=== PATIENT | male | born 1950 | race Caucasian/White ===

== ENCOUNTER → 2017-03-04 | Outpatient (CLI) | payer OTHER ==
[2017-03-04 12:22] LABS: BASO % 0.5 % (0.0-1.0); EOS % 0.2 % (0.0-3.0); IMMATURE GRANULOCYTE % 0.5 % (0-0); LYMPH # 0.7 10^3/uL (1.5-4.5); MEAN CORPUSCULAR HEMOGLOBIN 32.8 pg (27.0-33.0); MEAN CORPUSCULAR HGB CONC 35.1 g/dl (32.0-36.5); MEAN CORPUSCULAR VOLUME 93.4 fl (80.0-96.0); MONO # 0.7 10^3/uL (0.0-0.8); MONO % 7.9 % (0.0-5.0); NEUTROPHILS # 7.2 10^3/uL (1.8-7.7); NEUTROPHILS % 82.9 % (36.0-66.0); PLATELET COUNT, AUTOMATED 169 10^3/uL (150-450); RED CELL DISTRIBUTION WIDTH 12.5 % (11.5-14.5); WHITE BLOOD COUNT 8.7 10^3/uL (4.0-10.0)
[2017-03-04 12:37] LABS: ALBUMIN 3.8 GM/DL (3.2-5.2); ALBUMIN/GLOBULIN RATIO 1.19 (1.00-1.93); ALKALINE PHOSPHATASE 58 U/L (45-117); ALT/SGPT 39 U/L (12-78); ANION GAP 9 MEQ/L (8-16); AST/SGOT 20 U/L (15-37); BILIRUBIN,TOTAL 1.1 MG/DL (0.2-1.0); BLOOD UREA NITROGEN 11 MG/DL (7-18); CALCIUM LEVEL 9.1 MG/DL (8.8-10.2); CARBON DIOXIDE LEVEL 28 MEQ/L (21-32); CHLORIDE LEVEL 100 MEQ/L (98-107); CREATININE FOR GFR 1.08 MG/DL (0.70-1.30); GLOMERULAR FILTRATION RATE > 60.0 (>49); GLUCOSE, FASTING 160 MG/DL (80-110); POTASSIUM SERUM 3.2 MEQ/L (3.5-5.1); SODIUM LEVEL 137 MEQ/L (136-145)
== END ==
LOC: M LAB 11:56
PROVIDERS: ATTEND Physician Assistant
DX: R19.7 Diarrhea, unspecified (principal)

== ENCOUNTER 2017-11-01 09:17 | Day surgery (SDC) | payer OTHER ==
[~2017-11-01 09:17] MED LIST: LIDOCAINE 1% MDV 20ML VIAL As Ordered; PROPOFOL 200 MG/20 ML VIAL As Ordered
[2017-11-01] MEDS: NS 1,000 ML IV (09:46)
== END 2017-11-01 10:46 | disposition home or self-care (01) ==
LOC: M OPP 09:17
DX: K22.70 Barrett's esophagus without dysplasia (principal); R12 Heartburn; R11.0 Nausea; K22.8 Other specified diseases of esophagus; K44.9 Diaphragmatic hernia without obstruction or gangrene; K31.89 Other diseases of stomach and duodenum; I10 Essential (primary) hypertension; E78.5 Hyperlipidemia, unspecified; K21.9 Gastro-esophageal reflux disease without esophagitis; M19.90 Unspecified osteoarthritis, unspecified site; F41.9 Anxiety disorder, unspecified; G47.30 Sleep apnea, unspecified; I38 Endocarditis, valve unspecified; Z88.8 Allergy status to other drugs, medicaments and biological substances; Z79.82 Long term (current) use of aspirin; Z79.899 Other long term (current) drug therapy; Z87.891 Personal history of nicotine dependence
CPT/HCPCS: 43239

== ENCOUNTER 2019-03-23 22:27 | Emergency (ER) | payer MEDICARE, OTHER ==
[~2019-03-23] VITALS: Ht 185.4 cm; Wt 100.0 kg
[~2019-03-23 22:27] MED LIST changes: +ASPI81TA26 PO; +ATOR1TAB21 PO; +DULO1CAP6 PO; -LIDOCAINE 1% MDV 20ML VIAL As Ordered; +OMEP40CA97 PO; -PROPOFOL 200 MG/20 ML VIAL As Ordered; +VALS1TAB49 PO
[2019-03-23] MEDS ORDERED: LOSA50TA88 PO (22:34)
[2019-03-23 22:55] LABS: BASO # 0.1 10^3/uL (0.0-0.2); BASO % 0.9 % (0.0-1.0); EOS # 0.3 10^3/uL (0.0-0.5); EOS % 3.9 % (0.0-3.0); HEMOGLOBIN 11.8 g/dl (13.5-17.5); LYMPH # 1.3 10^3/uL (1.5-5.0); LYMPH % 15.6 % (24.0-44.0); MEAN CORPUSCULAR HEMOGLOBIN 32.1 pg (27.0-33.0); MEAN CORPUSCULAR HGB CONC 32.8 g/dl (32.0-36.5); MEAN CORPUSCULAR VOLUME 97.8 fl (80.0-96.0); MONO % 12.5 % (0.0-5.0); NEUTROPHILS # 5.5 10^3/uL (1.5-8.5); NEUTROPHILS % 66.6 % (36.0-66.0); PLATELET COUNT, AUTOMATED 206 10^3/uL (150-450); RED BLOOD COUNT 3.68 10^6/uL (4.30-6.10); WHITE BLOOD COUNT 8.2 10^3/uL (4.0-10.0)
[2019-03-23 23:24] LABS: ALBUMIN 3.8 GM/DL (3.2-5.2); ALT/SGPT 69 U/L (12-78); BILIRUBIN,DIRECT 0.1 MG/DL (0.0-0.2); BILIRUBIN,TOTAL 0.6 MG/DL (0.2-1.0); BLOOD UREA NITROGEN 20 MG/DL (7-18); CALCIUM LEVEL 8.9 MG/DL (8.8-10.2); CARBON DIOXIDE LEVEL 24 MEQ/L (21-32); CHLORIDE LEVEL 108 MEQ/L (98-107); CREATININE FOR GFR 1.03 MG/DL (0.70-1.30); GLOMERULAR FILTRATION RATE > 60.0 (>49); GLUCOSE, FASTING 99 MG/DL (70-100); LIPASE 121 U/L (73-393); POTASSIUM SERUM 3.8 MEQ/L (3.5-5.1); SODIUM LEVEL 141 MEQ/L (136-145); TOTAL PROTEIN 7.3 GM/DL (6.4-8.2)
[2019-03-23] MEDS ORDERED: ISOVUE-370 76% 100ML VIAL (Q9967) As Ordered ONE (23:28)
--- NOTE | 2019-03-24 00:02 | REPVR ---
PROCEDURE INFORMATION: Exam: CT Abdomen And Pelvis With Contrast Exam date and time: 03/23/2019 11:35 PM Clinical history: 68 years old, male; Abdominal pain; Flank; Right lower quadrant (rlq); Additional info: Rlq abd pain TECHNIQUE: Imaging protocol: Computed tomography of the abdomen and pelvis with intravenous contrast. Radiation optimization: All CT scans at this facility use at least one of these dose optimization techniques: automated exposure control; mA and/or kV adjustment per patient size (includes targeted exams where dose is matched to clinical indication); or iterative reconstruction. Contrast material: ISOVUE 370; Contrast volume: 100 ml; Contrast route: IV; COMPARISON: No relevant prior studies available. FINDINGS: Lungs: No suspicious mass or airspace process in the visualized lung bases. Liver: Liver appears unremarkable aside from a left lobe 10 mm cyst. Gallbladder and bile ducts: Gallbladder is distended with fluid and contains intraluminal stones. Gallbladder wall appears edematous. No common bile duct or intrahepatic bile duct dilatation. Pancreas: Pancreas appears normal. No focal mass or peripancreatic inflammation. Spleen: Spleen appears homogeneous without focal mass. Adrenals: Adrenal glands are normal in appearance. Kidneys and ureters: Kidneys are unremarkable aside from a nearly 5 cm simple fluid density right renal cyst. Stomach and bowel: No evidence of small bowel obstruction. No evidence of acute diverticulitis. Appendix: Normal caliber appendix is identified, with no adjacent inflammation. Intraperitoneal space: No pneumoperitoneum. Vasculature: No aortic aneurysm. Main portal and splenic veins enhance normally. Lymph nodes: No enlarged lymph nodes. Bladder: Urinary bladder appears normal. Reproductive: Dystrophic prostate calcifications are noted. Bones/joints: Bony structures are normal except for lumbar spine degenerative disc changes. Soft tissues: Fat containing umbilical hernia is present. IMPRESSION: 1. Cholelithiasis, and thickened appearing gallbladder wall, suggesting acute cholecystitis. Consider sonography or HIDA scan to confirm. 2. Normal-appearing appendix Electronically signed by: Rosales Mendoza On 03/24/2019 00:01:38 AM
[2019-03-24 01:19] VITALS: BP 126/58
== END 2019-03-24 01:21 | disposition home or self-care (01) ==
LOC: M ED 22:27
DX: K80.50 Calculus of bile duct without cholangitis or cholecystitis without obstruction (principal); K81.9 Cholecystitis, unspecified; E78.5 Hyperlipidemia, unspecified; F41.1 Generalized anxiety disorder; I10 Essential (primary) hypertension; Z79.82 Long term (current) use of aspirin; Z79.899 Other long term (current) drug therapy; Z88.8 Allergy status to other drugs, medicaments and biological substances
CPT/HCPCS: 74177; 80048; 80076; 81001; 83690; 85025; 99284; Q9967

== ENCOUNTER 2019-06-18 06:07 | Day surgery (SDC) | payer MEDICARE ==
[~2019-06-18] VITALS: Ht 188 cm; Wt 94.3 kg
[~2019-06-18 06:07] MED LIST changes: +CYMB1CAP5 PO; +FISH1000 PO; +GLUC1CAP10 PO; +KS I200C PO; +LOSA50TA88 PO; +LR 1,000 ML IV SCH; +MULTCAP PO; -VALS1TAB49 PO; +VALS40TA9 PO
[2019-06-18] MEDS ORDERED: BUPIVACAINE/EPIN 0.25% 30 ML VIAL As Ordered ONE (07:10)
[2019-06-18] MEDS ORDERED: MIDAZOLAM INJ 2 MG/2 ML VIAL (J2250) As Ordered ONE (07:10)
[2019-06-18] MEDS ORDERED: ROCURONIUM BROMIDE 50 MG/5 ML VIAL As Ordered ONE ×2 (07:10→08:02)
[2019-06-18] MEDS ORDERED: BUPIVACAINE HCL 0.25% 10 ML VIAL As Ordered ONE (07:10)
[2019-06-18] MEDS ORDERED: LIDOCAINE 2% INJ 100 MG/5 ML SDV (FOR ANES.) As Ordered ONE (07:10)
[2019-06-18] MEDS ORDERED: propofoL 200 MG/20 ML VIAL As Ordered ONE (07:10)
[2019-06-18] MEDS ORDERED: fentaNYL 250 MCG/5 ML INJECTION (J3010) As Ordered ONE (07:10)
[2019-06-18] MEDS ORDERED: KETOROLAC 60 MG/2 ML VIAL (J1885) As Ordered ONE (07:10)
[2019-06-18] MEDS ORDERED: BUPIVACAINE LIPOSOME/PF 1.3% 20ML VIAL (13.3MG/ML)(EXPAREL)(C9290 PER1MG) As Ordered ONE (07:10)
[2019-06-18] MEDS ORDERED: dexameTHASONE 4 MG/ML 1ML VIAL (J1100) As Ordered ONE (07:10)
[2019-06-18] MEDS ORDERED: ONDANSETRON 4MG/2ML VIAL (J2405) As Ordered ONE (07:10)
[2019-06-18] MEDS ORDERED: ACETAMINOPHEN 1000MG 100ML IV BTL (OFIRMEV) (J0131 PER 10MG) As Ordered ONE (07:11)
[2019-06-18] MEDS ORDERED: ceFAZolin 1GM INJ (J0690 PER 500MG) As Ordered ONE (07:21)
[2019-06-18] MEDS ORDERED: ceFAZolin SOD 1 GM in D5W MINI-BAG PLUS 50 ML IV ONE (07:30)
[2019-06-18] MEDS ORDERED: SUGAMMADEX SODIUM 500 MG/5 ML VIAL (BRIDION) As Ordered ONE (08:00)
[2019-06-18] MEDS ORDERED: ePHEDrine SULFATE 25 MG/5 ML(5MG/ML) SYRINGE As Ordered ONE (08:01)
--- NOTE | 2019-06-18 09:40 | RO ---
DATE OF PROCEDURE: 06/18/2019 PREOPERATIVE DIAGNOSES: History of cholecystitis and symptomatic umbilical hernia. POSTOPERATIVE DIAGNOSES: History of cholecystitis and symptomatic umbilical hernia. PROCEDURE: 1. Laparoscopic cholecystectomy. 2, Open umbilical hernia. SURGEON: Dr. Nikolay Farley. PET TRAINER: ANESTHESIA: General endotracheal anesthesia. ESTIMATED BLOOD LOSS: 50 mL FLUIDS: Crystalloid. DESCRIPTION OF PROCEDURE: The patient was brought to the operating room and was given general anesthesia. After adequate anesthesia and preoperative antibiotics were given, the patient was prepped and draped in sterile fashion. Next a supraumbilical curvilinear incision was made with skin knife. Blunt dissection was carried down to fascia and the hernia sac itself and the hernia sac was transected at the level of the umbilicus getting into the peritoneum. The 12 mm trocar was placed in the site. The abdomen was insufflated to 15 mm of pressure and epigastric and two lateral trocars were placed. The gallbladder was seen. It was tensely distended and because of it being tensely distended, I was not able to grasp it and retract it. Thus an aspirate needle was used to aspirate the gallbladder itself. The gallbladder was then grasped, retracted superiorly. Then the neck of the gallbladder was cleared of peritoneum, which was quite thickened and multiple adhesions of the right upper quadrant was taken down with the electrocautery as well. Eventually, after all these adhesions were taken down off the abdominal wall as well as on the liver, the gallbladder was able to be retracted superiorly enough and I could see the neck of the gallbladder and this was cleared of peritoneum using the hook cautery both laterally and anteriorly. Eventually, after cleaning this anteriorly, I was able to see the cystic artery going up onto the gallbladder itself. I followed it onto the gallbladder for some distance and then clipped it proximally and distally and transected it. There was a second branch that was going posteriorly that was going towards the neck of the gallbladder. This was isolated further on in the case and I was able to circumferentially clear this. Then once I was able to go posterior to the neck of the gallbladder, a critical view of safety was obtained and I was able to clip the artery a little bit more proximally and then the oozing from this area was well controlled. Next the posterior aspect of the neck of the gallbladder was cleared even further to dissect what was somewhat a fluted neck of the gallbladder going down to the cystic duct. But eventually I was able to get this down to an adequate size where the clips would fit across this nicely and the stone staying away from the common bile duct area. Once this was clipped proximally and distally, the gallbladder then was taken from the gallbladder bed using electrocautery. 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 It was difficult to get in an adequate plane without some oozing. This was controlled with electrocautery and in some areas, I entered the gallbladder as well, trying to stay on the gallbladder instead of an area that seemed to be fused with the gallbladder wall and the liver. Once this was eventually taken up to the superior aspect of this, and taking off the wall of the gallbladder, the liver bed was entered a little bit and there was some oozing from this site which was controlled with electrocautery. This area was copiously irrigated. There still was a little bit of oozing from that liver bed area up at the edge and thus further cautery seem to provide good hemostasis but because of the oozing that was appreciated in the liver bed that was seen in this area I used some Johnson after irrigating out the right upper quadrant until clear. This Johnson was nice clean and dry. Was till white with no evidence of bleeding. No evidence of bile leak appreciated. The gallbladder was placed in and EndoCatch bag brought out through the umbilicus and the trocars were removed under direct visualization. 0 Ethibond was used to close the local hernia with two [id number] sutures. This came together relatively nicely. Once this came together #3-0 Vicryl was used to tack the umbilicus down to the fascia, #3-0 Vicryl was used to approximate dermis, #4-0 Vicryl was used to approximate skin, #4-0 Vicryl was used in the other trocar sites as well. Steri-Strips and dry sterile dressing was applied. The patient was awakened, extubated, brought to recovery room awake, alert and hemodynamically stable. Sponge and needle counts correct times two. edited: 06/19/2019 1030 tkf
[2019-06-18] MEDS: PERCOCET 5MG/325MG TAB PO PRN ×2 (09:44→11:05)
[2019-06-18] MEDS ORDERED: ONDANSETRON 4MG/2ML VIAL (J2405) IV PRN (09:45)
[2019-06-18] MEDS ORDERED: NORCO, ANEXSIA 5/325MG TABLET (HYDROcodone/ACETAMINOPHEN) PO PRN (09:45)
[2019-06-18] MEDS ORDERED: LR 1,000 ML IV SCH ×2 (09:45)
[2019-06-18] MEDS ORDERED: fentaNYL 100 MCG/2 ML INJECTION (J3010) IV PRN (09:45)
[2019-06-18] MEDS ORDERED: METOCLOPRAMIDE INJ 10MG/2ML VIAL (J2765) IV PRN (09:45)
[2019-06-18] MEDS ORDERED: PERCOCET 5MG/325MG TAB As Ordered ONE (11:03)
[2019-06-18 11:20] VITALS: BP 143/68
[2019-06-18] MEDS ORDERED: KETOROLAC 30 MG/ML VIAL (J1885) IV SCH (15:00)
== END 2019-06-18 11:55 | disposition home or self-care (01) ==
LOC: M SDC 06:07
PROVIDERS: ATTEND Surgery
DX: K80.10 Calculus of gallbladder with chronic cholecystitis without obstruction (principal); K42.9 Umbilical hernia without obstruction or gangrene; I10 Essential (primary) hypertension; E78.5 Hyperlipidemia, unspecified; K21.9 Gastro-esophageal reflux disease without esophagitis; G47.30 Sleep apnea, unspecified; Z87.891 Personal history of nicotine dependence; Z79.82 Long term (current) use of aspirin; Z79.899 Other long term (current) drug therapy
CPT/HCPCS: 47562; 49585; 88302; 88304; C9290; J0131; J0690; J1100; J1885; J2250; J2405; J3010

== ENCOUNTER → 2019-11-01 | Outpatient (CLI) | payer MEDICARE ==
[~2019-11-01] MED LIST changes: +IBUP200C88 PO; -KS I200C PO; -LR 1,000 ML IV SCH
--- NOTE | 2019-11-01 15:53 | REP ---
REASON FOR EXAM: Pain. I have been given no history of trauma. There are no priors for comparison. COMPARISON: No priors. FINDINGS: No acute fracture or destructive osseous lesion. The mortise is intact. Electronically Signed by Tray Colindres DO 11/01/2019 05:12 P
== END ==
LOC: M ADAMS 14:36
PROVIDERS: ATTEND Physician Assistant
DX: M25.572 Pain in left ankle and joints of left foot (principal)

== ENCOUNTER → 2020-12-30 | Outpatient (CLI) | payer MEDICARE ==
[~2020-12-30] MED LIST changes: +HYDR12.55 PO; +OMEP40CA4 PO; -OMEP40CA97 PO
== END ==
LOC: M LABSMTC 10:15
PROVIDERS: ATTEND Anesthesiology
DX: Z01.818 Encounter for other preprocedural examination (principal); Z20.822 Contact with and (suspected) exposure to COVID-19

== ENCOUNTER 2021-01-04 09:22 | Day surgery (SDC) | payer MEDICARE ==
[~2021-01-04] VITALS: Ht 188 cm; Wt 98.4 kg
[~2021-01-04 09:22] MED LIST changes: +NS 1,000 ML IV ONE
[2021-01-04] MEDS ORDERED: LIDOCAINE 2% 100MG/5ML SDV (FOR ANES.) As Ordered ONE (09:43)
[2021-01-04] MEDS ORDERED: fentaNYL 100 MCG/2 ML INJECTION (J3010) As Ordered ONE (09:43)
[2021-01-04] MEDS ORDERED: propofoL 200 MG/20 ML VIAL As Ordered ONE ×2 (09:43→09:58)
--- NOTE | 2021-01-04 10:03 | ROOR ---
Patient Name: Daron Rivera Procedure Date: 01/04/2021 9:49 AM Date of : 1950 Age: 70 Room: [facility] Gender: Male Note Status: Finalized Procedure: Upper Endoscopy + Biopsies Indications: Heartburn, Exclusion of Merritt's esophagus Providers: Stalin Uribe MD Referring MD: Chalino Barrios DO Requesting Provider: Medicines: Monitored Anesthesia Care Complications: No immediate complications. Procedure: Pre-Anesthesia Assessment: - The heart rate, respiratory rate, oxygen saturations, blood pressure, adequacy of pulmonary ventilation, and response to care were monitored throughout the procedure. The Endoscope was introduced through the mouth, and advanced to the second part of duodenum. The upper GI endoscopy was accomplished without difficulty. The patient tolerated the procedure well. Findings: The Z-line was irregular and was found 40 cm from the incisors. Multiple biopsies were obtained with cold forceps for evaluation to rule out Merritt's Esophagus randomly at the gastroesophageal junction. A small hiatal hernia was present. No other significant abnormalities were identified in a careful examination of the stomach. The exam of the duodenum was otherwise normal. Impression: - Z-line irregular, 40 cm from the incisors. - Small hiatal hernia. - Multiple biopsies were obtained at the gastroesophageal junction. - The examination was otherwise normal. Recommendation: - Patient has a contact number available for emergencies. The signs and symptoms of potential delayed complications were discussed with the patient. Return to normal activities tomorrow. Written discharge instructions were provided to the patient. - High fiber diet. - Discharge patient to home. - Follow an antireflux regimen. - Continue present medications. - Await pathology results. - Telephone GI clinic for pathology results in 1 week. - Repeat upper endoscopy for surveillance based on pathology results. - Return to referring physician. - The findings and recommendations were discussed with the patient's family. Procedure Code(s): --- Professional --- 15123, Esophagogastroduodenoscopy, flexible, transoral; with biopsy, single or multiple Diagnosis Code(s): --- Professional --- K22.8, Other specified diseases of esophagus K44.9, Diaphragmatic hernia without obstruction or gangrene R12, Heartburn CPT copyright 2019 [employer]. All rights reserved. The codes documented in this report are preliminary and upon hospitality host review may be revised to meet current compliance requirements. Stalin Uribe MD Stalin Uribe MD 01/04/2021 10:03:30 AM Electronically signed by Stalin Uribe MD Number of Addenda: 0 Note Initiated On: 01/04/2021 9:49 AM Estimated Blood Loss: Estimated blood loss: none.
[2021-01-04 10:26] VITALS: BP 157/78
== END 2021-01-04 10:27 | disposition home or self-care (01) ==
LOC: M OPP 09:22
PROVIDERS: ATTEND Internal Medicine Gastroenterology
DX: K22.70 Barrett's esophagus without dysplasia (principal); K22.8 Other specified diseases of esophagus; K44.9 Diaphragmatic hernia without obstruction or gangrene; R12 Heartburn; Z79.82 Long term (current) use of aspirin; Z79.899 Other long term (current) drug therapy; Z88.8 Allergy status to other drugs, medicaments and biological substances; Z87.891 Personal history of nicotine dependence
CPT/HCPCS: 43239; 88305; J3010

== ENCOUNTER 2024-03-06 06:54 | Day surgery (SDC) | payer MEDICARE ==
[~2024-03-06] VITALS: Ht 188 cm; Wt 99.7 kg
[~2024-03-06 06:54] MED LIST changes: +DULO1CAP5 PO; +EQL50TAB2 PO; +LOSA50TA28 PO; -LOSA50TA88 PO; +MULTTAB61 PO; -NS 1,000 ML IV ONE; +NS 250 ML IV ONE; +OMEG10002 PO
[2024-03-06] MEDS ORDERED: LIDOCAINE 2% 100MG/5ML SDV (FOR ANES.) As Ordered ONE (07:14)
[2024-03-06] MEDS ORDERED: propofoL 200 MG/20 ML VIAL As Ordered ONE (07:14)
[2024-03-06] MEDS ORDERED: fentaNYL 100 MCG/2 ML INJECTION As Ordered ONE (07:14)
[2024-03-06] MEDS ORDERED: GLYCOPYRROLATE INJ 0.2 MG/ML 2 ML VIAL As Ordered ONE (07:14)
[2024-03-06 08:28] VITALS: BP 144/65; TEMP 97.6; O2SAT 95
== END 2024-03-06 08:35 | disposition home or self-care (01) ==
LOC: M OPP 06:54
PROVIDERS: ATTEND Internal Medicine Gastroenterology
DX: Z12.11 Encounter for screening for malignant neoplasm of colon (principal); Z12.12 Encounter for screening for malignant neoplasm of rectum; D12.2 Benign neoplasm of ascending colon; K21.00 Gastro-esophageal reflux disease with esophagitis, without bleeding; K64.0 First degree hemorrhoids; K44.9 Diaphragmatic hernia without obstruction or gangrene; R19.7 Diarrhea, unspecified; K57.30 Diverticulosis of large intestine without perforation or abscess without bleeding; Z87.19 Personal history of other diseases of the digestive system; Z79.82 Long term (current) use of aspirin; Z79.899 Other long term (current) drug therapy; G47.30 Sleep apnea, unspecified; I10 Essential (primary) hypertension; E78.00 Pure hypercholesterolemia, unspecified; Z88.8 Allergy status to other drugs, medicaments and biological substances
CPT/HCPCS: 43239; 45380; 45385; 88305; J1596; J3010

== ENCOUNTER → 2025-05-06 | Outpatient (CLI) | payer MEDICARE ==
[~2025-05-06] MED LIST changes: -EQL50TAB2 PO; +ISOVUE-370 76% 100 ML VIAL ONE; -NS 250 ML IV ONE; +VITA1TAB82 PO
== END ==
LOC: M PLAIMG 12:23
PROVIDERS: ATTEND Emergency Medicine
DX: M54.50 Low back pain, unspecified (principal); K44.9 Diaphragmatic hernia without obstruction or gangrene; I25.10 Atherosclerotic heart disease of native coronary artery without angina pectoris; N28.1 Cyst of kidney, acquired; K57.90 Diverticulosis of intestine, part unspecified, without perforation or abscess without bleeding; N40.0 Benign prostatic hyperplasia without lower urinary tract symptoms; K76.89 Other specified diseases of liver; K42.9 Umbilical hernia without obstruction or gangrene
CPT/HCPCS: 74177; Q9967